=== PATIENT | male | born 1995 | race Caucasian/White ===

== ENCOUNTER 2020-08-17 11:39 | Outpatient (CLI) | payer OTHER ==
[~2020-08-17 11:39] MED LIST: Magnevist 469MG/ML 20 ML VIAL ONE
--- NOTE | 2020-08-17 13:56 | MRI ---
Exam: Brain MRI with and without contrast HISTORY: Partial symptomatic epilepsy. History of complex partial seizure disorder. Tic disorder. COMPARISON: None FINDINGS: Gradient echo sequence: No hemorrhage Calvarium: Appropriate T1 marrow signal intensity Midline brain parenchyma: Unremarkable Cerebrum:No parenchymal mass, mass effect or midline shift. Brain volume, age-appropriate. Cortical g ray-white white matter differentiation is preserved. No significant T2 or FLAIR white matter hyperintensities. Symmetric signal intensity of the hippocampi. No MR evidence of mesial temporal scl erosis. Ventricles: No evidence of hydrocephalus. Sinuses and mastoid air cells: Adequate aeration Diffusion: Central arterial flow is maintained. Absent restricted diffusion. Postcontrast images: No pathologic enhancement of the brain parenchyma. IMPRESSION: 1. Absent restricted diffusion. No acute infarction 2. No pathologic enhancement the brain parenchyma 3. No evidence of mesial temporal sclerosis.
== END 2020-08-17 11:40 | disposition home or self-care (01) ==
LOC: MRI 11:39
PROVIDERS: ATTEND Psychiatry & Neurology Neurology
DX: G40.209 Localization-related (focal) (partial) symptomatic epilepsy and epileptic syndromes with complex partial seizures, not intractable, without status epilepticus (principal)
CPT/HCPCS: 70553; 95816; A9579

== ENCOUNTER 2021-01-10 17:30 | Outpatient (CLI) | payer OTHER | END 2021-01-10 17:31 | disposition home or self-care (01) | LOC: SLEEPLAB 17:30 | PROVIDERS: ATTEND Family Medicine | DX: G47.33 Obstructive sleep apnea (adult) (pediatric) (principal); R06.83 Snoring; F84.0 Autistic disorder | CPT/HCPCS: 95806 ==

== ENCOUNTER 2021-04-19 19:00 | Outpatient (CLI) | payer OTHER | END 2021-04-19 19:01 | disposition home or self-care (01) | LOC: SLEEPLAB 19:00 | PROVIDERS: ATTEND Family Medicine | DX: G47.33 Obstructive sleep apnea (adult) (pediatric) (principal) | CPT/HCPCS: 95810 ==

== ENCOUNTER 2021-06-20 19:30 | Outpatient (CLI) | payer OTHER | END 2021-06-20 19:31 | disposition home or self-care (01) | LOC: SLEEPLAB 19:30 | PROVIDERS: ATTEND Internal Medicine Critical Care Medicine | DX: G47.33 Obstructive sleep apnea (adult) (pediatric) (principal); G47.31 Primary central sleep apnea | CPT/HCPCS: 95811 ==